=== PATIENT | female | born 1950 | race Caucasian/White ===

== ENCOUNTER 2017-04-27 21:50 | Emergency (ER) | payer OTHER ==
[~2017-04-27 21:50] MED LIST: ASCO500T PO; B12-1CHW CHEW; CALC-187 PO; FURO40TA PO; GLUCCAP5 PO; LECI1200; LEVO50TA4 PO; MELA1TAB3 PO; META28.34 PO; MILK175C6 PO; MULT1TAB84 PO; OMEG100037 PO; POTA99TA PO; PROBCAP3 PO; SELE50TA PO; SPIR50TA PO; [UNRECOGNIZED DRUG - CODE]
[2017-04-27 21:53] VITALS: BP 126/73; PULSE 81; RESP 16; TEMP 98; O2SAT 97
--- NOTE | 2017-04-27 22:56 | PD ---
HPI Chief Complaint: Injury Time Seen by Provider: 22:44 Travel History International Travel<30 days: No Contact w/Intl Traveler<30days: No Traveled to known affect area: No History of Present Illness HPI 66-year-old female here for evaluation of nose pain, head pain, neck pain, and left lateral thoracic pain after mechanical trip and fall. The patient was at a class for work at [employer] when she states she tripped on a speed bump. She states that she fell forward landing directly onto her nose. She denies LOC. She is not on any antiplatelets or anticoagulants. She did have a moderate amount of bleeding from her nose. She is having some pain in her lower neck that radiates to her bilateral shoulders and upper back with movements. She was able to ambulate after the fall and drove herself to the emergency department. She denies nausea or vomiting. No visual disturbances. No paresthesias or motor deficits. Pain is moderate. PFSH Past Medical History Cancer: No Cardiovascular Problems: Yes (MITRAL VALVE PROLAPSE) Diabetes: No Diminished Hearing: No Endocrine: Yes Gastrointestinal Disorders: Yes (GI VARICES, CIRRHOSIS) Genitourinary: No Hepatitis: Yes (HEP C3 - 2001) Hiatal Hernia: No Immune Disorder: No Medical other: Yes (HX ESOPHAGEAL & ABDOMINAL VARICES ) Musculoskeletal: No Neurologic: No Psychiatric: No Respiratory: No Thyroid Disease: Yes ("UNDERACTIVE") Tetanus Vaccination: Unknown Past Surgical History Abdominal Surgery: No AICD: No Body Medical Devices: NONE Cardiac Surgery: No Endocrine Surgery: No Eye Surgery: No Genitourinary Surgery: No Gynecologic Surgery: No Joint Replacement: No Oral Surgery: Yes (TONSILLECTOMY ) Pacemaker: No Thoracic Surgery: Yes (BREAST BIOPSY - BENIGN (? WHICH BREAST) BLOCKED MILK DUCT) Other Surgery: Yes (PROCEDURE TO REPAIR ESOPHAGEAL & ABDOMINAL VARICES ) Social History Alcohol Use: No Tobacco Use: Yes (PT 'VAPES') Substance Use: No Allergies-Medications (Allergen,Severity, Reaction): Coded Allergies: No Known Allergies (Unverified , 04/27/17) Reported Meds & Prescriptions Reported Meds & Active Scripts Active Levothyroxine (Levothyroxine Sodium) 50 Mcg Tab 50 Mcg PO DAILY Spironolactone 50 Mg Tab 50 Mg PO BIDPC Furosemide 40 Mg Tab 80 Mg PO BID Reported Selenium 50 Mcg Tab 50 Mg PO DAILY Probiotic & Acidophilus F (Probiotic Product) 1 Cap Cap 1 Cap PO DAILY Potassium 99 Mg Tab 99 Mg PO TID Multivitamin Adults (Multiple Vitamins W/ Minerals) 1 Tab 1 Tab PO DAILY Milk Thistle 175 Mg Cap 175 Mg PO TID [id number] (Methylcobalamin) 1 Mg Chew 1 Mg CHEW BID Metamucil Smooth Texture (Psyllium Hydrophilic Mucilloid) 28.3 % Pow 1 Scoop PO HS PRN 1 rounded TEASPOON in 8 oz of liquid at the first sign of irregularity. Melatonin-Pyridoxine 1-10 Mg Tab 1 Tab PO HS Lecithin 1,200 Mg Cap Glucosamine-Chondroitin (Misc Natural Products) 1 Cap 1 Cap PO TID Odor Free Garlic (Garlic) 100 Mg Tab Fish Oil 1000 mg ([place]-3 Fatty Acids) 1 Cap Cap 1 Cap PO BID Calcium 500/Vitamin D3 (Calcium Carbonate-Cholecalciferol) 500-400 Mg-Unit Tab 1 Tab PO BID Ascorbic Acid 500 Mg Tab 500 Mg PO TID Review of Systems Except as stated in HPI: all other systems reviewed are Neg Physical Exam Narrative GENERAL: Well-developed, well-nourished, awake, alert, GCS 15, no acute distress. SKIN: Focused skin assessment warm/dry. Mild ecchymosis to bridge of nose. No lacerations or abrasions. HEAD: Normocephalic. Mild edema to bridge of nose with overlying ecchymosis and diffuse tenderness. No craniofacial step-offs. EYES: Pupils equal, round, 3 mm, reactive to light. EOMI. No scleral icterus. No injection or drainage. ENT: Dry blood in right anterior naris. Mucous membranes pink and moist. NECK: Trachea midline. No JVD. There is midline cervical spine tenderness over C5 and C6 without step-off. CARDIOVASCULAR: Regular rate and rhythm. RESPIRATORY: No accessory muscle use. Clear to auscultation. Breath sounds equal bilaterally. GASTROINTESTINAL: Abdomen soft, non-tender, nondistended. MUSCULOSKELETAL: No obvious deformities. No clubbing. No cyanosis. No edema. Left lateral chest wall tenderness without crepitus, without step-off, without paradoxical chest wall movement. Mild midline upper thoracic spine tenderness without step-off. The rest of the patient's T-spine and L-spine spine are without step-off or tenderness. All joints and extremities are without deformity, without tenderness, with normal ROM. NEUROLOGICAL: Awake and alert. No obvious cranial nerve deficits. Motor grossly within normal limits. Normal speech. PSYCHIATRIC: Appropriate mood and affect; insight and judgment normal. Data Data Last Documented VS Vital Signs Date Time Temp Pulse Resp B/P Pulse Ox O2 Delivery O2 Flow Rate FiO2 04/27/17 22:38 18 04/27/17 21:53 98.0 81 126/[address] Brain W/O Iv Contrast(Rout) (04/27/17 ) Ct Cerv Spine W/O Contrast (04/27/17 ) Ct Facial Bones W/O Iv Cont (04/27/17 ) Chest, Single Ap (04/27/17 ) Spine, Thoracic-Ap/Lat/Sw(3vw) (04/27/17 ) Ibuprofen (Motrin) (04/27/17 23:00) ^ [place] Collar (04/27/17 22:56) Collar [place] (04/27/17 ) MDM Medical Decision Making Medical Screen Exam Complete: Yes Emergency Medical Condition: Yes Differential Diagnosis Facial bone fracture, intracranial trauma, cervical spine injury, thoracic spine injury Narrative Course Initial vital signs show heart rate 81, blood pressure 126/73, pulse ox 97% on room air, oral temp of 98F. Chest x-ray: Left basilar subsegmental atelectasis. X-ray thoracic spine: Slight dextrocurvature otherwise unremarkable thoracic spine. CT brain: No acute intracranial disease. CT facial bones: CONCLUSION: Right nasal fracture. CT C spine: CONCLUSION: 1. No fracture. 2. Degenerative changes from C4-C6. The patient was made aware of all findings. She is resting comfortably. No respiratory distress. She does have some left lateral chest wall tenderness without crepitus, without step-off, without paradoxical chest wall movements. She refused any pain medication here in the emergency department. She is stable for discharge home with outpatient follow-up with her primary care physician as well as maxillofacial surgeon this week. She was informed on when to return to the emergency department. She verbalizes understanding and agreement with plan. Diagnosis Primary Impression: Fall Qualified Code: W19.XXXA - Fall, initial encounter Additional Impressions: Nasal bone fracture Qualified Code: S02.2XXA - Closed fracture of nasal bone, initial encounter Chest wall contusion Qualified Code: S20.212A - Chest wall contusion, left, initial encounter Referrals: Denton Freire MD 1 week ENT Romie Alvarenga DMD 3 days Craniofacial surgeon Primary Care Physician 3 days Additional Instructions: Follow-up with your primary care physician this week. Follow-up with craniofacial surgeon Dr. Alvarenga or a craniofacial surgeon of your choice this week. Follow-up with ENT Dr. Freire or an ENT of your choice this week. Return to the emergency department for worsening symptoms or any other concerns as discussed. Scripts Tizanidine 4 Mg Tab4 Mg PO TID #20 TAB Ref 0 Prov:Derek Soni MD 04/28/17 Tramadol 50 Mg Tab50 Mg PO Q6H PRN (PAIN) #20 TAB Ref 0 Prov:Derek Soni MD 04/28/17 Disposition: 01 DISCHARGE HOME Condition: Stable Derek Soni MD Apr 27, 2017 22:56
[2017-04-27] MEDS ORDERED: IBUPROFEN 600 MG TAB PO ONE (23:00)
--- NOTE | 2017-04-27 23:36 | RADRPT ---
EXAM DATE/TIME: 04/27/2017 23:14 [facility] COMPARISON: No previous studies available for comparison. INDICATIONS : Patient fell tonight landing on upper back area. No chest complaints. MEDICAL HISTORY : None. SURGICAL HISTORY : None. ENCOUNTER: Initial ACUITY: 1 day PAIN SCORE: 0/10 LOCATION: chest FINDINGS: A single view of the chest demonstrates the lungs to be symmetrically aerated without evidence of mas s, infiltrate or effusion. Minimal linear density left lung base. The cardiomediastinal contours are unremarkable. Osseous structures are intact. CONCLUSION: 1. Left basilar subsegmental atelectasis. Papi Quezada MD on April 27, 2017 at 23:34 Board Certified Radiologist. This report was verified electronically.
--- NOTE | 2017-04-27 23:37 | RADRPT ---
EXAM DATE/TIME: 04/27/2017 23:15 [facility] COMPARISON: No previous studies available for comparison. INDICATIONS : Patient fell tonight landing on upper back. Complains of thoracic pain. MEDICAL HISTORY : None. SURGICAL HISTORY : None. ENCOUNTER: Initial ACUITY: 1 day PAIN SCORE: 7/10 LOCATION: T-Spine FINDINGS: There is normal alignment of the thoracic vertebral bodies. Vertebral body height is maintained. No evidence of fracture or subluxation. Slight dextrocurvature. Pedicles are intact at all levels. The paravertebral reflections are not thickened. CONCLUSION: Slight dextrocurvature otherwise unremarkable thoracic spine. Papi Quezada MD on April 27, 2017 at 23:35 Board Certified Radiologist. This report was verified electronically.
--- NOTE | 2017-04-28 00:08 | RADRPT ---
EXAM DATE/TIME: 04/27/2017 23:21 [facility] COMPARISON: No previous studies available for comparison. INDICATIONS : Trauma, fall. RADIATION DOSE: 26.22 CTDIvol (mGy) MEDICAL HISTORY : Cardiovascular disease. SURGICAL HISTORY : None. ENCOUNTER: Initial ACUITY: 1 day PAIN SCALE: 3/10 LOCATION: cranial TECHNIQUE: Multiple contiguous axial images were obtained of the head. Using automated exposure control and adj ustment of the mA and/or kV according to patient size, radiation dose was kept as low as reasonably a chievable to obtain optimal diagnostic quality images. DICOM format image data is available electro nically for review and comparison. FINDINGS: CEREBRUM: The ventricles are normal for age. No evidence of midline shift, mass lesion, hemorrhage or acute in farction. No extra-axial fluid collections are seen. POSTERIOR FOSSA: The cerebellum and brainstem are intact. The 4th ventricle is midline. The cerebellopontine angle i s unremarkable. EXTRACRANIAL: The visualized portion of the orbits is intact. SKULL: The calvaria is intact. No evidence of skull fracture. CONCLUSION: No acute intracranial disease. Papi Quezada MD on April 28, 2017 at 0:05 Board Certified Radiologist. This report was verified electronically.
--- NOTE | 2017-04-28 00:11 | RADRPT ---
EXAM DATE/TIME: 04/27/2017 23:21 [facility] COMPARISON: No previous studies available for comparison. INDICATIONS : Trauma, fall. RADIATION DOSE: 10.66 CTDIvol (mGy) MEDICAL HISTORY : None SURGICAL HISTORY : None. ENCOUNTER: Initial ACUITY: 1 day PAIN SCALE: 3/10 LOCATION: neck TECHNIQUE: Volumetric scanning of the cervical spine was performed. Multiplanar reconstructions in the sagittal, coronal and oblique axial planes were performed. Using automated exposure control and adjustment o f the mA and/or kV according to patient size, radiation dose was kept as low as reasonably achievable to obtain optimal diagnostic quality images. DICOM format image data is available electronically f or review and comparison. FINDINGS: VERTEBRAE: Normal vertebral body height. ALIGNMENT: Minimal retrolisthesis C4 on C5 and C5 at C6. C2-C3: The bony spinal canal is normal in size. No evidence of disc bulge or herniation. The neural forami na are bilaterally patent. C3-C4: The bony spinal canal is normal in size. No evidence of disc bulge or herniation. The neural forami na are bilaterally patent. C4-C5: Posterior disc osteophyte complex abuts the ventral thecal sac without canal stenosis. Mild neural fo raminal narrowing bilaterally. C5-C6: Posterior disc osteophyte complex abuts the ventral thecal sac without canal stenosis. Mild neural fo raminal narrowing bilaterally. C6-C7: The bony spinal canal is normal in size. No evidence of disc bulge or herniation. The neural forami na are bilaterally patent. C7-T1: The bony spinal canal is normal in size. No evidence of disc bulge or herniation. The neural forami na are bilaterally patent. CONCLUSION: 1. No fracture. 2. Degenerative changes from C4-C6. Papi Quezada MD on April 28, 2017 at 0:08 Board Certified Radiologist. This report was verified electronically.
--- NOTE | 2017-04-28 00:14 | RADRPT ---
EXAM DATE/TIME: 04/27/2017 23:21 [facility] COMPARISON: No previous studies available for comparison. INDICATIONS : Trauma, fall. RADIATION DOSE: 45.71 CTDIvol (mGy) MEDICAL HISTORY : None SURGICAL HISTORY : None. ENCOUNTER: Initial ACUITY: 1 day PAIN SCORE: 6/10 LOCATION: facial TECHNIQUE: Volumetric scanning of the facial bones was performed. Using automated exposure control and adjustme nt of the mA and/or kV according to patient size, radiation dose was kept as low as reasonably achiev able to obtain optimal diagnostic quality images. DICOM format image data is available electronicall y for review and comparison. FINDINGS: ORBITS: The orbital and infraorbital osseous structures are intact. The retroconal structures have a normal configuration. No radiopaque foreign bodies are seen. NASAL BONE: Displaced and slightly depressed right nasal fracture. ZYGOMATIC ARCHES: Symmetric without evidence of fracture. SINUSES: The maxillary, ethmoid and frontal sinuses are intact. No air-fluid levels seen. NASAL CAVITY: The nasal septum is intact and midline. The lacrimal ducts are intact. SOFT TISSUES: No radiopaque foreign bodies seen. No soft-tissue swelling is seen. INTRACRANIAL: No intracranial air seen. CRIBIFORM PLATE: Grossly intact. CONCLUSION: Right nasal fracture. Papi Quezada MD on April 28, 2017 at 0:10 Board Certified Radiologist. This report was verified electronically.
[2017-04-28] MEDS ORDERED: TRAM50TA PO (00:34)
[2017-04-28] MEDS ORDERED: TIZA4TAB PO (00:34)
== END 2017-04-28 00:48 | disposition home or self-care (01) ==
LOC: NEPD 21:50
DX: S02.2XXA Fracture of nasal bones, initial encounter for closed fracture (principal); S20.212A Contusion of left front wall of thorax, initial encounter; W18.09XA Striking against other object with subsequent fall, initial encounter; Y92.481 Parking lot as the place of occurrence of the external cause; Y99.0 Civilian activity done for income or pay
CPT/HCPCS: 70450; 70486; 71010; 72072; 72125; 99284; L0150

== ENCOUNTER 2018-04-07 15:54 | Observation (INO) | payer OTHER ==
[~2018-04-07 15:54] MED LIST changes: +TIZA4TAB PO; +TRAM50TA PO
[2018-04-07 16:01] VITALS: BP 118/68; PULSE 70; RESP 18; TEMP 97.9; O2SAT 69; O2SAT 96
[2018-04-07] MEDS ORDERED: TETANUS/DIPHTHERIA TOXOID ADULT 0.5 ML VIAL IM ONE (16:15)
[2018-04-07] MEDS ORDERED: SODIUM CHLOR 0.9% 1000 ML INJ 1,000 ML IV ONE ×2 (16:15→19:15)
[2018-04-07] MEDS ORDERED: METOCLOPRAMIDE HCL 10 MG/2 ML VIAL IV PUSH ONE (16:15)
[2018-04-07 16:59] LABS: AUTOMATED NEUTROPHIL # 2.9 TH/MM3 (1.8-7.7); BASOPHIL % 0.8 % (0.0-2.0); EOSINOPHIL # 0.1 TH/MM3 (0-0.4); EOSINOPHIL % 3.2 % (0.0-4.0); HEMATOCRIT 47.1 % (35.0-46.0); HEMOGLOBIN 16.4 GM/DL (11.6-15.3); LYMPH % 14.3 % (9.0-44.0); LYMPHOCYTE # 0.6 TH/MM3 (1.0-4.8); MEAN CELL VOLUME 100.5 FL (80.0-100.0); MEAN CORPUSCULAR HEMOGLOBIN 35.1 PG (27.0-34.0); MEAN CORPUSCULAR HGB CONC 34.9 % (32.0-36.0); MEAN PLATELET VOLUME 10.4 FL (7.0-11.0); MONO % 9.4 % (0.0-8.0); MONOCYTE # 0.4 TH/MM3 (0-0.9); NEUT % 72.3 % (16.0-70.0); PLATELET COUNT 133 TH/MM3 (150-450); RED BLOOD COUNT 4.68 MIL/MM3 (4.00-5.30); RED CELL DISTRIBUTION WIDTH 14.3 % (11.6-17.2)
--- NOTE | 2018-04-07 17:04 | RADRPT ---
EXAM DATE: 04/07/2018 4:44 PM EDT AGE/SEX: 67 years / Female INDICATIONS: Syncopal episode and shortness of breath. CLINICAL DATA: This is the patient's initial encounter. Patient reports that signs and symptoms have been present for 1 day and indicates a pain score of 0/10. MEDICAL/SURGICAL HISTORY: None. None. COMPARISON: Previous chest x-ray dated 04/27/2017 is used for comparison.. FINDINGS: Minimal bibasilar atelectasis and/or scarring is noted. No focal alveolar consolidation is noted. No pulmonary edema is noted. The heart is stable. Mild degenerative changes and scoliosis of the thoraci c spine are noted. CONCLUSION: 1. Minimal bibasilar atelectasis and/or scarring. 2. No acute focal infiltrate or pulmonary vascular congestion. 3. Mild degenerative changes and scoliosis of the thoracic spine. Electronically signed by: Bowen Rubi MD 04/07/2018 5:03 PM EDT
[2018-04-07 17:12] LABS: INTERNATIONAL NORMALIZED RATIO 1.3 RATIO
[2018-04-07 17:51] LABS: ALBUMIN 3.6 GM/DL (3.4-5.0); AST (GOT) 45 U/L (15-37); BICARBONATE 27.2 MEQ/L (21.0-32.0); BLOOD UREA NITROGEN 14 MG/DL (7-18); CHLORIDE 98 MEQ/L (98-107); CREATININE 0.94 MG/DL (0.50-1.00); GLOMERULAR FILTRATION RATE 60 ML/MIN (>89); GLUCOSE,RANDOM 110 MG/DL (74-106); SODIUM (NA) 137 MEQ/L (136-145)
[2018-04-07 17:52] LABS: ALT (GPT) 32 U/L (10-53)
[2018-04-07 18:00] VITALS: BP 114/72; PULSE 67; RESP 16; O2SAT 96
[2018-04-07] MEDS ORDERED: LIDOCAINE HCL 1% PF 30 ML VIAL INFIL ONE (18:00)
[2018-04-07 18:02] LABS: ALKALINE PHOSPHATASE 167 U/L (45-117); TOTAL BILIRUBIN ADULT 1.4 MG/DL (0.2-1.0); TOTAL PROTEIN 7.8 GM/DL (6.4-8.2); TROPONIN I 0.02 NG/ML (0.02-0.05)
--- NOTE | 2018-04-07 18:06 | RADRPT ---
EXAM DATE: 04/07/2018 6:02 PM EDT AGE/SEX: 67 years / Female INDICATIONS: Syncopal episode, fell and hit head, nausea, and vomiting. CLINICAL DATA: This is the patient's initial encounter. Patient reports that signs and symptoms have been present for 1 day and indicates a pain score of 6/10. MEDICAL/SURGICAL HISTORY: Cardiovascular disease. Hepatitis C. Cirrhosis. Mitral valve prolapse. Hypothyroidism. None. RADIATION DOSE: 56.35 CTDI (mGy) COMPARISON: [facility] [place], [place] BRAIN W/O CONTRAST, 04/27/2017. . TECHNIQUE: CT of the head without contrast. Using automated exposure control and adjustment of the mA and/or kV according to patient size, radiation dose was kept as low as reasonably achievable to ob tain optimal diagnostic quality images. FINDINGS: Cerebrum: The ventricles are normal for age. No evidence of midline shift, mass lesion, hemorrhage or acute infarction. No extraaxial fluid collections are seen. Posterior Fossa: The cerebellum and brainstem are intact. The 4th ventricle is midline. The cerebe llopontine angle is unremarkable. Extracranial: There is a large left parietal scalp hematoma. Skull: The calvaria is intact. No evidence of skull fracture. CONCLUSION: 1. No acute intracranial abnormality. 2. Left parietal scalp hematoma. Electronically signed by: Jose Clemons MD 04/07/2018 6:05 PM EDT
--- NOTE | 2018-04-07 18:18 | RADRPT ---
EXAM DATE: 04/07/2018 6:03 PM EDT AGE/SEX: 67 years / Female INDICATIONS: Syncopal episode, fell and hit head. CLINICAL DATA: This is the patient's initial encounter. Patient reports that signs and symptoms have been present for 1 day and indicates a pain score of 6/10. MEDICAL/SURGICAL HISTORY: Cardiovascular disease. Hepatitis C. Cirrhosis. Mitral valve prola pse. None. RADIATION DOSE: 13.72 CTDI (mGy) COMPARISON: [facility] – [place], CT CERVICAL SPINE W/O CONTRAST, 04/27/2017. . TECHNIQUE: Contiguous axial images were obtained using helical multirow detector technique. The vol umetric data was post-processed with multiplanar reconstruction in oblique axial, sagittal, and coron al planes. Using automated exposure control and adjustment of the mA and/or kV according to patient s ize, radiation dose was kept as low as reasonably achievable to obtain optimal diagnostic quality kel ges. FINDINGS: No acute fracture or prevertebral soft tissue swelling is noted. There is straightening of the normal cervical lordosis. Cervical spondylosis is noted at C4-5, C5-6 and C6-7. Moderate bilateral foramina l narrowing is noted at C4-5, C5-6 and C6-7. Mild spinal stenosis is noted at C5-6. Scoliosis is note d throughout the cervical spine. C2-3: The bony spinal canal is normal in size. No evidence of disc bulge or herniation. The neural foramina are bilaterally patent. C3-4: The bony spinal canal is normal in size. No evidence of disc bulge or herniation. The neural foramina are bilaterally patent. C4-5: Moderate bilateral foraminal narrowing is noted. No spinal stenosis or focal disc herniation i s noted. C5-6: Mild spinal stenosis and moderate bilateral foraminal narrowing is noted. No focal disc hernia tion is noted. C6-7: Moderate bilateral foraminal narrowing is noted. No spinal stenosis or focal disc herniation i s noted. C7-T1: The bony spinal canal is normal in size. No evidence of disc bulge or herniation. The neura l foramina are bilaterally patent. CONCLUSION: 1. No acute fracture or prevertebral soft tissue swelling. 2. Mild spinal stenosis and moderate bilateral foraminal narrowing at C5-6. 3. Moderate bilateral foraminal narrowing at C4-5 and C6-7 without spinal stenosis. 4. Straightening of normal cervical lordosis. 5. Scoliosis of the cervical spine. 6. Cervical spondylosis at C4-5, C5-6 and C6-7. Electronically signed by: Bowen Rubi MD 04/07/2018 6:16 PM EDT
[2018-04-07] MEDS ORDERED: SODIUM CHLORIDE 0.9% FLUSH 10 ML FLUSH IV FLUSH PRN ×2 (18:45→19:15)
[2018-04-07] MEDS ORDERED: NALOXONE HCL 0.4 MG/ML AMP IV PUSH PRN (18:45)
--- NOTE | 2018-04-07 19:04 | HHI.HP ---
[facility] No Primary Care Physician Admission Diagnosis Diagnoses: (1) Syncope Diagnosis: Principal (2) Head injury, acute Diagnosis: Principal (3) Coagulopathy Diagnosis: Principal (4) Hepatitis C Diagnosis: Principal (5) Hypothyroidism Diagnosis: Principal Travel History International Travel<30 Days: No Contact w/Intl Traveler <30 Da: No Traveled to Known Affected Are: No History of Present Illness This is a 67-year-old female with a PMH of Hepatitis C, Cirrhosis, Varices, MVP and Hypothyroidism who was brought to the ER by EMS secondary to syncopal episode. Patient states she works at [employer], was at work earlier today and had acute onset of dizziness, states she finished up her shift and while in the break room had another episode of dizziness followed by acute syncopal event. No seizure activity reported. Denies c/o chest pain, SOB , fever, chills, nausea, vomiting or diarrhea. Does note h/o Hepatitis C, successfully treated w/ Interferon "decades ago", on Lasix 80mg bid and Aldactone 50mg bid. Also notes she was previously on Synthroid 75mcg qd but had dosage decreased to 50mcg, currently no PCP to follow up with. On arrival, BP 118/68, HR 70, O2 sat 96% on RA, Afebrile. Hemoglobin 16.4, no previous labs for comparison. Platelets 133. Chemistry at baseline. TSH [address] Head with no acute findings, left parietal scalp hematoma. CT C-spine no acute fracture or soft tissue swelling CXR minimal bibasilar atelectasis, no focal infiltrate or pulmonary vascular congestion. +Head laceration, s/p suture repair in ER. Review of Systems Except as stated in HPI: all other systems reviewed are Neg ROS: 14 point review of systems otherwise negative. Past Family Social History Past Medical History PMH: Hepatitis C, Cirrhosis, Varices, MVP and Hypothyroidism Past Surgical History PAST SURGICAL HISTORY: Tonsillectomy, Breast Biopsy Allergies: Coded Allergies: No Known Allergies (Unverified Allergy, Unknown, 04/07/18) Family History PAST FAMILY HISTORY: Reviewed. No h/o DM or CAD Social History PAST SOCIAL HISTORY: Occasional alcohol. Positive for tobacco. Negative for drugs per Physical Exam Vital Signs Vital Signs Date Time Temp Pulse Resp B/P (MAP) Pulse Ox O2 Delivery O2 Flow Rate FiO2 04/07/18 18:00 67 16 114/72 (86) 96 Room Air 04/07/18 16:01 97.9 70 18 118/68 (85) 96 Physical Exam PE: GENERAL: Very pleasant middle-aged white female in no acute distress. HEENT: PERRLA, EOMI. No scleral icterus or conjunctival pallor. No lid lag or facial droop. Posterior scalp hematoma, s/p suture repair, bandage in place. CARDIOVASCULAR: Regular rate and rhythm. No obvious murmurs to auscultation. No chest tenderness to palpation. RESPIRATORY: No obvious rhonchi or wheezing. Clear to auscultation. Breath sounds equal bilaterally. GASTROINTESTINAL: Abdomen soft, non-tender, nondistended. BS normal. MUSCULOSKELETAL: Extremities without clubbing, cyanosis, or edema. No obvious deformities. NEUROLOGICAL: Awake, alert and oriented x4. No focal neurologic deficits. Moving both upper and lower extremities spontaneously. Laboratory Laboratory Tests Test 04/07/18 16:15 04/07/18 17:05 White Blood Count 4.0 Red Blood Count 4.68 Hemoglobin 16.4 Hematocrit 47.1 Mean Corpuscular Volume 100.5 Mean Corpuscular Hemoglobin 35.1 Mean Corpuscular Hemoglobin Concent 34.9 Red Cell Distribution Width 14.3 Platelet Count 133 Mean Platelet Volume 10.4 Neutrophils (%) (Auto) 72.3 Lymphocytes (%) (Auto) 14.3 Monocytes (%) (Auto) 9.4 Eosinophils (%) (Auto) 3.2 Basophils (%) (Auto) 0.8 Neutrophils # (Auto) 2.9 Lymphocytes # (Auto) 0.6 Monocytes # (Auto) 0.4 Eosinophils # (Auto) 0.1 Basophils # (Auto) 0.0 CBC Comment DIFF FINAL Differential Comment Prothrombin Time 13.0 Prothromb Time International Ratio 1.3 Activated Partial Thromboplast Time 27.6 Blood Urea Nitrogen 14 Creatinine 0.94 Random Glucose 110 Total Protein 7.8 Albumin 3.6 Calcium Level 9.0 Magnesium Level 2.0 Alkaline Phosphatase 167 Aspartate Amino Transf (AST/SGOT) 45 Alanine Aminotransferase (ALT/SGPT) 32 Total Bilirubin 1.4 Sodium Level 137 Potassium Level 3.7 Chloride Level 98 Carbon Dioxide Level 27.2 Anion Gap 12 Estimat Glomerular Filtration Rate 60 Total Creatine Kinase 95 Troponin I 0.02 Thyroid Stimulating Hormone 3rd Gen 83.800 Result Diagram: 04/07/18 1615 04/07/18 1705 Caprini VTE Risk Assessment Caprini VTE Risk Assessment: No/Low Risk (score <= 1) VTE Pharm Contraindication: High risk for bleeding Caprini Risk Assessment Model Point Value = 1 Point Value = 2 Point Value = 3 Point Value = 5 Age 41-60 Minor surgery BMI > 25 kg/m2 Swollen legs Varicose veins or History of unexplained or recurrent spontaneous Oral contraceptives or hormone replacement Sepsis (< 1 month) Serious lung disease, including pneumonia (< 1 month) Abnormal pulmonary function Acute myocardial infarction Congestive heart failure (< 1 month) History of inflammatory bowel disease Medical patient at bed rest Age 61-74 Arthroscopic surgery Major open surgery (> 45 min) Laparoscopic surgery (> 45 min) Malignancy Confined to bed (> 72 hours) Immobilizing plaster cast Central venous access Age >= 75 History of VTE Family history of VTE Factor V Leiden Prothrombin [id number] Lupus anticoagulant Anticardiolipin antibodies Elevated serum homocysteine Heparin-induced thrombocytopenia Other congenital or acquired thrombophilia Stroke (< 1 month) Elective arthroplasty Hip, pelvis, or leg fracture Acute spinal cord injury (< 1 month) Prophylaxis Regimen Total Risk Factor Score Risk Level Prophylaxis Regimen 0-1 Low Early ambulation 2 Moderate Order ONE of the following: *Sequential Compression Device (SCD) *Heparin 5000 units SQ BID 3-4 Higher Order ONE of the following medications: *Heparin 5000 units SQ TID *Enoxaparin/Lovenox 40 mg SQ daily (WT < 150 kg, CrCl > 30 mL/min) *Enoxaparin/Lovenox 30 mg SQ daily (WT < 150 kg, CrCl > 10-29 mL/min) *Enoxaparin/Lovenox 30 mg SQ BID (WT < 150 kg, CrCl > 30 mL/min) AND/OR *Sequential Compression Device (SCD) 5 or more Highest Order ONE of the following medications: *Heparin 5000 units SQ TID (Preferred with Epidurals) *Enoxaparin/Lovenox 40 mg SQ daily (WT < 150 kg, CrCl > 30 mL/min) *Enoxaparin/Lovenox 30 mg SQ daily (WT < 150 kg, CrCl > 10-29 mL/min) *Enoxaparin/Lovenox 30 mg SQ BID (WT < 150 kg, CrCl > 30 mL/min) AND *Sequential Compression Device (SCD) Assessment and Plan Problem List: (1) Syncope ICD Code: R55 - Syncope and collapse Status: Acute (2) Head injury, acute ICD Code: S09.90XA - Unspecified injury of head, initial encounter Status: Acute (3) Coagulopathy ICD Code: D68.9 - Coagulation defect, unspecified (4) Hepatitis C ICD Code: B19.20 - Unspecified viral hepatitis C without hepatic coma (5) Hypothyroidism ICD Code: E03.9 - Hypothyroidism, unspecified Assessment and Plan A/P: 1. Syncope: acute dizziness followed by syncopal event, possibly due to dehydration from high dose diuretic therapy, monitor I/O, admit for Observation , Telemetry, initial trop negative, will check serial cardiac enzymes to eval for possible ischemia. Check Echo to eval for valvular abnormality/outlet obstruction. IVF for hydration. Meclizine prn for dizziness, PT for eval/tx. 2. Head Injury: secondary to syncope/fall. CT Head w/ no acute findings, CT C -Spine w/ no acute fracture, images reviewed by me. S/p suture repair in ER. Hold any ASA/Anticoagulation. 3. Coagulopathy: INR 1.3, h/o Hepatitis C, successfully treated per patient, recheck INR in am in light of recent injury. 4. Hepatitis C: s/p Interferon treatment, currently on Lasix/Aldactone, will hold for now in light of syncope/dehydration, monitor I/O, consider lowering Lasix 80mg bid 5. Hypothyroidism: TSH elevated, previously on Synthroid 75mcg, lowered to 50mcg however pending new PCP follow up. Will check T3/T4, increase Synthroid to 75mcg, outpatient follow up w/ PCP for lab recheck. 6. DVT Prophylaxis: Pharmacologic contraindication due to coagulopathy 7. Social work for d/c planning as needed. 8. Case discussed w/ ER physician at length, labs/records/imaging reviewed by me. Problem Qualifiers (1) Syncope: Qualified Codes: R55 - Syncope and collapse (2) Head injury, acute: Qualified Codes: S09.90XA - Unspecified injury of head, initial encounter Lyndsey Rivrea MD Apr 07, 2018 19:04
[2018-04-07] MEDS ORDERED: LACTULOSE SYRUP 20 GM/30 ML CUP PO PRN (19:15)
[2018-04-07] MEDS ORDERED: MAGNESIUM HYDROXIDE SUSP 30 ML CUP PO PRN (19:15)
[2018-04-07] MEDS ORDERED: SENNOSIDES 8.6 MG TAB PO PRN (19:15)
[2018-04-07] MEDS ORDERED: BISACODYL 10 MG SUPP RECTAL PRN (19:15)
--- NOTE | 2018-04-07 19:30 | PD ---
HPI Chief Complaint: Syncope/Near-Syncope Time Seen by Provider: 16:06 Travel History International Travel<30 days: No Contact w/Intl Traveler<30days: No Traveled to known affect area: No History of Present Illness HPI 67-year-old female that presents to the ED for evaluation of syncope. Patient had a syncopal episode today while at work. Per patient she does not remember what happened. She does not know what happened before this. She woke up on the floor and apparently had a significant head injury. Patient was put on cervical collar by EVAC. She was brought here for evaluation. She states that she has had 2 syncopal episode the past and she was told that she had the hydration. She relates that is the same. She does have a history of thyroid disease. She states having a headache and some neck pain. Per patient the headache is 7 out of 10. Denies take any blood thinners. Has not seen anybody for this. No chest pain or shortness of breath. No urinary or bowel movement issues. No abdominal pain. No symptoms preloading to the event. She does not know how long she was down. No fevers chills or sweats. No other medical issues at this time. She does appear to be bleeding from a injury to the back of the head. Heart disease secondary to significant blood clotting in the area. PFSH Past Medical History Cancer: No Cardiovascular Problems: Yes (MITRAL VALVE PROLAPSE) Diabetes: No Diminished Hearing: No Endocrine: Yes Gastrointestinal Disorders: Yes (GI VARICES, CIRRHOSIS) Hepatitis: Yes (HEP C3 - 2001) Hiatal Hernia: No Immune Disorder: No Medical other: Yes (HX ESOPHAGEAL & ABDOMINAL VARICES ) Thyroid Disease: Yes (hypo) Tetanus Vaccination: Unknown Influenza Vaccination: Yes Past Surgical History Abdominal Surgery: No AICD: No Cardiac Surgery: No Endocrine Surgery: No Eye Surgery: No Genitourinary Surgery: No Gynecologic Surgery: No Joint Replacement: No Oral Surgery: Yes (TONSILLECTOMY ) Pacemaker: No Thoracic Surgery: Yes (BREAST BIOPSY - BENIGN (? WHICH BREAST) BLOCKED MILK DUCT) Tonsillectomy: Yes Other Surgery: Yes (BREAST BIOPSY, REPAIR ESOPHAGEAL & ABDOMINAL VARICES ) Social History Alcohol Use: Yes (Wine after work) Tobacco Use: Yes ("A couple cigarettes a day") Substance Use: No Allergies-Medications (Allergen,Severity, Reaction): Coded Allergies: No Known Allergies (Unverified Allergy, Unknown, 04/07/18) Reported Meds & Prescriptions Reported Meds & Active Scripts Active Furosemide 40 Mg Tab 80 Mg PO BID Tizanidine (Tizanidine HCl) 4 Mg Tab 4 Mg PO TID Tramadol (Tramadol HCl) 50 Mg Tab 50 Mg PO Q6H PRN Levothyroxine (Levothyroxine Sodium) 50 Mcg Tab 50 Mcg PO DAILY Spironolactone 50 Mg Tab 50 Mg PO BIDPC Reported Probiotic & Acidophilus F (Probiotic Product) 1 Cap Cap 1 Cap PO DAILY Metamucil Smooth Texture (Psyllium Hydrophilic Mucilloid) 28.3 % Pow 1 Scoop PO HS PRN 1 rounded TEASPOON in 8 oz of liquid at the first sign of irregularity. Melatonin-Pyridoxine 1-10 Mg Tab 1 Tab PO HS Glucosamine-Chondroitin (Misc Natural Products) 1 Cap 1 Cap PO TID Calcium 500/Vitamin D3 (Calcium Carbonate-Cholecalciferol) 500-400 Mg-Unit Tab 1 Tab PO BID Ascorbic Acid 500 Mg Tab 500 Mg PO TID Review of Systems Except as stated in HPI: all other systems reviewed are Neg Physical Exam Narrative GENERAL: SKIN: Warm and dry. HEAD: Atraumatic. Normocephalic. Patient has a significant hematoma to the left occipital head. Tender to touch. Some bleeding noted. About a 4 cm laceration to the back of the head with some clotting. EYES: Pupils equal and round. No scleral icterus. No injection or drainage. ENT: No nasal bleeding or discharge. Mucous membranes pink and moist. Tongue is midline. No uvula deviation. NECK: Trachea midline. No JVD. CARDIOVASCULAR: Regular rate and rhythm. No murmurs, S3, S4. RESPIRATORY: No accessory muscle use. Clear to auscultation. Breath sounds equal bilaterally. GASTROINTESTINAL: Abdomen soft, non-tender, nondistended. Hepatic and splenic margins not palpable. MUSCULOSKELETAL: Extremities without clubbing, cyanosis, or edema. No obvious deformities. Full range of motion of the upper and lower extremities bilaterally. 2+ pulses bilaterally. NEUROLOGICAL: Awake and alert. No obvious cranial nerve deficits. Motor grossly within normal limits. Five out of 5 muscle strength in the arms and legs. Normal speech. PSYCHIATRIC: Appropriate mood and affect; insight and judgment normal. Data Data Last Documented VS Vital Signs Date Time Temp Pulse Resp B/P (MAP) Pulse Ox O2 Delivery O2 Flow Rate FiO2 04/07/18 18:00 67 16 114/72 (86) 96 Room Air 04/07/18 16:01 97.9 Orders Orders Electrocardiogram (04/07/18 16:12) Complete Blood Count With Diff (04/07/18 16:12) Comprehensive Metabolic Panel (04/07/18 16:12) Ckmb (Isoenzyme) Profile (04/07/18 16:12) Troponin I (04/07/18 16:12) Prothrombin Time / Inr (Pt) (04/07/18 16:12) Act Partial Throm Time (Ptt) (04/07/18 16:12) Magnesium (Mg) (04/07/18 16:12) Thyroid Stimulating Hormone (04/07/18 16:12) Chest, Single Ap (04/07/18 16:12) Ct Brain W/O Iv Contrast(Rout) (04/07/18 16:12) Iv Access Insert/Monitor (04/07/18 16:12) Ecg Monitoring (04/07/18 16:12) Oximetry (04/07/18 16:12) Orthostatic Vital Signs (04/07/18 16:12) Ct Cerv Spine W/O Contrast (04/07/18 ) Sodium Chlor 0.9% 1000 Ml Inj (Ns 1000 M (04/07/18 16:15) Metoclopramide Inj (Reglan Inj) (04/07/18 16:15) Tetanus/Diphtheria Tox Adult (Tetanus/Di (04/07/18 16:15) Wound Care (04/07/18 16:27) Lidocaine Pf 1% Inj (Xylocaine-Mpf 1% In (04/07/18 18:00) Place In Observation (04/07/18 ) Vital Signs (Adult) Q4H (04/07/18 18:45) Varnisher / Telemetry .CONTINUOUS (04/07/18 18:45) Sodium Chloride 0.9% Flush (Ns Flush) (04/07/18 18:45) Sodium Chloride 0.9% Flush (Ns Flush) (04/07/18 21:00) Naloxone Inj (Narcan Inj) (04/07/18 18:45) Echo 2d Comp With Doppler (04/07/18 ) Vital Signs (Adult) Q4H (04/07/18 19:02) Activity Oob With Assistance (04/07/18 19:02) Varnisher / Telemetry .CONTINUOUS (04/07/18 19:02) Intake + Output ANJELICA.QSHIFT (04/07/18 19:02) Diet Heart Healthy (04/08/18 Breakfast) Sodium Chlor 0.9% 1000 Ml Inj (Ns 1000 M (04/07/18 19:02) Sodium Chloride 0.9% Flush (Ns Flush) (04/07/18 19:15) Sodium Chloride 0.9% Flush (Ns Flush) (04/07/18 21:00) Comprehensive Metabolic Panel (04/08/18 06:00) Complete Blood Count With Diff (04/08/18 06:00) Troponin I (04/08/18 00:00) Troponin I (04/08/18 06:00) Prothrombin Time / Inr (Pt) (04/08/18 06:00) Scd Bilateral/Knee High ANJELICA.BID (04/07/18 19:02) Tee Bilateral/Knee High ANJELICA.QSHIFT (04/07/18 19:03) Acetaminophen (Tylenol) (04/07/18 19:15) Oxycodone (Roxicodone) (04/07/18 19:15) Oxycodone (Roxicodone) (04/07/18 19:15) Docusate Sodium-Senna (Erum-Colace) (04/07/18 21:00) Magnesium Hydroxide Liq (Milk Of Magnesi (04/07/18 19:15) Sennosides (Senokot) (04/07/18 19:15) Bisacodyl Supp (Dulcolax Supp) (04/07/18 19:15) Lactulose Liq (Lactulose Liq) (04/07/18 19:15) Physician Name Changes (04/07/18 ) Sodium Chlor 0.9% 1000 Ml Inj (Ns 1000 M (04/07/18 19:15) Admit Order (Ed Use Only) (04/07/18 19:16) Labs Laboratory Tests Test 04/07/18 16:15 04/07/18 17:05 White Blood Count 4.0 TH/MM3 Red Blood Count 4.68 MIL/MM3 Hemoglobin 16.4 GM/DL Hematocrit 47.1 % Mean Corpuscular Volume 100.5 FL Mean Corpuscular Hemoglobin 35.1 PG Mean Corpuscular Hemoglobin Concent 34.9 % Red Cell Distribution Width 14.3 % Platelet Count 133 TH/MM3 Mean Platelet Volume 10.4 FL Neutrophils (%) (Auto) 72.3 % Lymphocytes (%) (Auto) 14.3 % Monocytes (%) (Auto) 9.4 % Eosinophils (%) (Auto) 3.2 % Basophils (%) (Auto) 0.8 % Neutrophils # (Auto) 2.9 TH/MM3 Lymphocytes # (Auto) 0.6 TH/MM3 Monocytes # (Auto) 0.4 TH/MM3 Eosinophils # (Auto) 0.1 TH/MM3 Basophils # (Auto) 0.0 TH/MM3 CBC Comment DIFF FINAL Differential Comment Prothrombin Time 13.0 SEC Prothromb Time International Ratio 1.3 RATIO Activated Partial Thromboplast Time 27.6 SEC Blood Urea Nitrogen 14 MG/DL Creatinine 0.94 MG/DL Random Glucose 110 MG/DL Total Protein 7.8 GM/DL Albumin 3.6 GM/DL Calcium Level 9.0 MG/DL Magnesium Level 2.0 MG/DL Alkaline Phosphatase 167 U/L Aspartate Amino Transf (AST/SGOT) 45 U/L Alanine Aminotransferase (ALT/SGPT) 32 U/L Total Bilirubin 1.4 MG/DL Sodium Level 137 MEQ/L Potassium Level 3.7 MEQ/L Chloride Level 98 MEQ/L Carbon Dioxide Level 27.2 MEQ/L Anion Gap 12 MEQ/L Estimat Glomerular Filtration Rate 60 ML/MIN Total Creatine Kinase 95 U/L Troponin I 0.02 NG/ML Thyroid Stimulating Hormone 3rd Gen 83.800 uIU/ML MDM Medical Decision Making Medical Screen Exam Complete: Yes Emergency Medical Condition: Yes Medical Record Reviewed: Yes Interpretation(s) CBC & BMP Diagram 04/07/18 16:15 04/07/18 17:05 Total Protein 7.8, Albumin 3.6, Calcium Level 9.0, Magnesium Level 2.0, Alkaline Phosphatase 167 H, Aspartate Amino Transf (AST/SGOT) 45 H, Alanine Aminotransferase (ALT/SGPT) 32, Total Bilirubin 1.[address] H Last Impressions Head CT 04/07/18 1612 Signed Impressions: CONCLUSION: 1. No acute intracranial abnormality. 2. Left parietal scalp hematoma. Chest X-Ray 04/07/18 1612 Signed Impressions: CONCLUSION: 1. Minimal bibasilar atelectasis and/or scarring. 2. No acute focal infiltrate or pulmonary vascular congestion. 3. Mild degenerative changes and scoliosis of the thoracic spine. Cervical Spine CT 04/07/18 0000 Signed Impressions: CONCLUSION: 1. No acute fracture or prevertebral soft tissue swelling. 2. Mild spinal stenosis and moderate bilateral foraminal narrowing at C5-6. 3. Moderate bilateral foraminal narrowing at C4-5 and C6-7 without spinal sten osis. 4. Straightening of normal cervical lordosis. 5. Scoliosis of the cervical spine. 6. Cervical spondylosis at C4-5, C5-6 and C6-7. troponin and CKMB negative EKG shows sinus rhythm with no sign of acute ischemia or arrhythmia read by me and attending. Differential Diagnosis Syncope versus head injury versus fall versus laceration versus head bleed Narrative Course 67-year-old female that presents to the ED for evaluation of syncope and head injury. Patient was properly examined and was found to have signs and symptoms concerning for significant syncope. Labs and imaging order. Labs and imaging were essentially unremarkable other than for hematoma. After explained procedure to the patient and she agreed to it laceration was repaired stating procedure note. I am concerned about the patient's syncope. She initially did not want to stay. Her my attending Dr. Hook evaluate her who had a long discussion with the patient and she agreed to stay. Patient was admitted to Dr. Rivera who agrees to admission for further evaluation of syncope. Diagnosis Primary Impression: Syncope Qualified Codes: R55 - Syncope and collapse Additional Impressions: Head injury, acute Qualified Codes: S09.90XA - Unspecified injury of head, initial encounter Hypothyroidism Qualified Codes: E03.9 - Hypothyroidism, unspecified Laceration Admitting Information Admitting Physician Requests: Observation Andrey Jerome Apr 07, 2018 19:30
[2018-04-07] MEDS ORDERED: MECLIZINE HCL 25 MG TAB PO PRN (20:15)
[2018-04-07 20:30] VITALS: BP 94/60; PULSE 69; RESP 17; TEMP 98.2; O2SAT 98
[2018-04-07 20:32] VITALS: BP 96/56
[2018-04-07] MEDS: SODIUM CHLORIDE 0.9% FLUSH 10 ML FLUSH IV FLUSH SCH (21:00)
[2018-04-07] MEDS ORDERED: SODIUM CHLORIDE 0.9% FLUSH 10 ML FLUSH IV FLUSH SCH (21:00)
[2018-04-07] MEDS: DOCUSATE SODIUM 50 MG/SENNA 8.6 MG TAB PO SCH (21:00)
[2018-04-08] VITALS (7 sets, daily range): BP systolic 78–87; BP diastolic 45–62; PULSE 60–67; RESP 15–20; TEMP 98.1–98.4; O2SAT 94–98
[2018-04-08] MEDS: SODIUM CHLOR 0.9% 1000 ML INJ 1,000 ML IV SCH ×3 (00:40→15:02)
[2018-04-08] MEDS ORDERED: SODIUM CHLORID 0.9% 500 ML INJ 500 ML IV ONE (04:30)
[2018-04-08 04:38] LABS: AUTOMATED NEUTROPHIL # 2.6 TH/MM3 (1.8-7.7); BASOPHIL % 0.4 % (0.0-2.0); EOSINOPHIL # 0.1 TH/MM3 (0-0.4); EOSINOPHIL % 2.9 % (0.0-4.0); HEMATOCRIT 37.3 % (35.0-46.0); HEMOGLOBIN 12.9 GM/DL (11.6-15.3); LYMPH % 9.8 % (9.0-44.0); LYMPHOCYTE # 0.3 TH/MM3 (1.0-4.8); MEAN CELL VOLUME 100.3 FL (80.0-100.0); MEAN CORPUSCULAR HEMOGLOBIN 34.8 PG (27.0-34.0); MEAN CORPUSCULAR HGB CONC 34.7 % (32.0-36.0); MEAN PLATELET VOLUME 9.9 FL (7.0-11.0); MONO % 12.8 % (0.0-8.0); MONOCYTE # 0.4 TH/MM3 (0-0.9); NEUT % 74.1 % (16.0-70.0); PLATELET COUNT 96 TH/MM3 (150-450); RED BLOOD COUNT 3.72 MIL/MM3 (4.00-5.30); RED CELL DISTRIBUTION WIDTH 13.8 % (11.6-17.2); WHITE BLOOD COUNT 3.4 TH/MM3 (4.0-11.0)
[2018-04-08 04:46] LABS: INTERNATIONAL NORMALIZED RATIO 1.3 RATIO; PROTHROMBIN TIME - PATIENT 13.5 SEC (9.8-11.6)
[2018-04-08] MEDS: LEVOTHYROXINE SODIUM 75 MCG TAB PO SCH (04:59)
[2018-04-08] MEDS: ACETAMINOPHEN 325 MG TAB PO PRN (04:59)
[2018-04-08 05:21] LABS: ALBUMIN 2.4 GM/DL (3.4-5.0); ALKALINE PHOSPHATASE 100 U/L (45-117); ALT (GPT) 24 U/L (10-53); AST (GOT) 33 U/L (15-37); BICARBONATE 21.8 MEQ/L (21.0-32.0); BLOOD UREA NITROGEN 13 MG/DL (7-18); CALCIUM 7.6 MG/DL (8.5-10.1); CHLORIDE 107 MEQ/L (98-107); CREATININE 0.68 MG/DL (0.50-1.00); FREE T3 1.22 PG/ML (2.18-3.98); FREE T4 0.81 NG/DL (0.76-1.46); GLOMERULAR FILTRATION RATE 87 ML/MIN (>89); GLUCOSE,RANDOM 72 MG/DL (74-106); SODIUM (NA) 141 MEQ/L (136-145); TOTAL BILIRUBIN ADULT 1.4 MG/DL (0.2-1.0); TOTAL PROTEIN 5.6 GM/DL (6.4-8.2); TROPONIN I 0.03 NG/ML (0.02-0.05)
[2018-04-08] MEDS: DOCUSATE SODIUM 50 MG/SENNA 8.6 MG TAB PO SCH ×2 (09:00→20:39)
[2018-04-08] MEDS: SODIUM CHLORIDE 0.9% FLUSH 10 ML FLUSH IV FLUSH SCH ×2 (09:00→20:39)
--- NOTE | 2018-04-08 14:00 | HHI.PR ---
Subjective Remarks Follow up syncope. BP has been low. Patient still reporting dizziness when sitting or standing. No nausea/vomiting. No chest pain or dyspnea. No vision changes. She has a frontal headache. Objective Vitals Vital Signs Date Time Temp Pulse Resp B/P (MAP) Pulse Ox O2 Delivery O2 Flow Rate FiO2 04/08/18 12:00 98.1 65 17 78/51 (60) 94 04/08/18 08:29 98.2 64 18 80/53 (62) 97 04/08/18 03:56 98.2 67 17 83/47 (59) 97 04/08/18 01:11 87/54 (65) 04/08/18 00:04 98.3 65 18 87/52 (64) 97 04/07/18 20:32 67 16 96/56 (69) 97 04/07/18 20:30 98.2 69 17 94/60 (71) 98 04/07/18 18:00 67 16 114/72 (86) 96 Room Air 04/07/18 16:01 97.9 70 18 118/68 (85) 96 I/O 04/07/18 04/07/18 04/07/18 04/08/18 04/08/18 04/08/18 07:00 15:00 23:00 07:00 15:00 23:00 Intake Total 2200 ml Balance 2200 ml Intake IV Total 2200 ml # Voids 2 Result Diagram: 04/08/18 0424 04/08/18 0424 Imaging Last Impressions Head CT 04/07/18 1612 Signed Impressions: CONCLUSION: 1. No acute intracranial abnormality. 2. Left parietal scalp hematoma. Chest X-Ray 04/07/18 1612 Signed Impressions: CONCLUSION: 1. Minimal bibasilar atelectasis and/or scarring. 2. No acute focal infiltrate or pulmonary vascular congestion. 3. Mild degenerative changes and scoliosis of the thoracic spine. Cervical Spine CT 04/07/18 0000 Signed Impressions: CONCLUSION: 1. No acute fracture or prevertebral soft tissue swelling. 2. Mild spinal stenosis and moderate bilateral foraminal narrowing at C5-6. 3. Moderate bilateral foraminal narrowing at C4-5 and C6-7 without spinal sten osis. 4. Straightening of normal cervical lordosis. 5. Scoliosis of the cervical spine. 6. Cervical spondylosis at C4-5, C5-6 and C6-7. Objective Remarks General: No acute distress. HEENT: Scalp laceration sutured. Heart: Regular rate and rhythm. 2/6 murmur. Lungs: Clear to auscultation bilaterally. No wheezes, rales, or rhonchi. Breathing is nonlabored. Abdomen: Soft, nontender, nondistended. Extremities: No lower extremity edema. Psych: Alert and oriented. Neuro: Normal speech. No focal deficits noted. Procedures none Urinary Catheter: No Vascular Central Line Catheter: No A/P Problem List: (1) Syncope ICD Code: R55 - Syncope and collapse Status: Acute (2) Head injury, acute ICD Code: S09.90XA - Unspecified injury of head, initial encounter Status: Acute (3) Coagulopathy ICD Code: D68.9 - Coagulation defect, unspecified (4) Hepatitis C ICD Code: B19.20 - Unspecified viral hepatitis C without hepatic coma (5) Hypothyroidism ICD Code: E03.9 - Hypothyroidism, unspecified Assessment and Plan 1. Syncope: Patient developed acute dizziness followed by a syncopal episode. She fell and hit her head. This may have been precipitated by dehydration from high-dose diuretic therapy. Monitor intake/output. Patient remains hypotensive. Serial cardiac enzymes are negative. Echocardiogram ordered, but not done yet. Consult cardiology. Continue IV fluids. 2. Hypotension: Uncertain etiology. Diuretics are on hold. Continue IV fluids. Monitor blood pressure. 3. Head injury: Scalp laceration sutured. CT of the head is negative. CT of the cervical spine shows no acute fracture. 4. Coagulopathy: Monitor INR. Not on anticoagulation. 5. History of hepatitis C: Status post interferon treatment. Diuretics on hold secondary to syncope, dehydration. 6. Hypothyroidism: TSH significantly elevated. Synthroid dose increased. Follow-up with PCP and recheck TSH in 4-6 weeks. 7. DVT prophylaxis: SCDs, YUSRA abraham. Avoid chemical prophylaxis secondary to coagulopathy. Discharge Planning Pending further workup, clearance by cardiology. Problem Qualifiers (1) Syncope: Qualified Codes: R55 - Syncope and collapse (2) Head injury, acute: Qualified Codes: S09.90XA - Unspecified injury of head, initial encounter Ger Marks MD Apr 08, 2018 14:00
--- NOTE | 2018-04-08 17:32 | EKG ---
Date Performed: 04/07/2018 Time Performed: 16:09:33 PTAGE: 67 years EKG: Sinus rhythm POSSIBLE LEFT ATRIAL ENLARGEMENT RIGHT BUNDLE BRANCH BLOCK Compared to previous tracing, the Right b undle branch block and atrial abnormality is new. ABNORMAL ECG PREVIOUS TRACING : 09/18/2014 10.24 DOCTOR: Reece Harris Interpretating Date/Time 04/08/2018 17:32:02
[2018-04-09 00:50] VITALS: BP 80/55; PULSE 66; RESP 16; TEMP 98.5; O2SAT 95
[2018-04-09] MEDS: SODIUM CHLOR 0.9% 1000 ML INJ 1,000 ML IV SCH ×2 (01:02→11:02)
[2018-04-09 05:13] VITALS: BP 82/51; PULSE 68; RESP 17; TEMP 98.5; O2SAT 93
[2018-04-09] MEDS: LEVOTHYROXINE SODIUM 75 MCG TAB PO SCH (05:34)
[2018-04-09] MEDS: ACETAMINOPHEN 325 MG TAB PO PRN (05:35)
[2018-04-09 07:40] VITALS: PULSE 62
[2018-04-09 08:17] VITALS: BP 84/50; PULSE 65; RESP 18; TEMP 97.4; O2SAT 95
--- NOTE | 2018-04-09 08:22 | MB ---
cc: Aung Carmona MD DATE: 04/08/2018 REASON FOR CONSULTATION: Evaluation of syncope. HISTORY OF PRESENT ILLNESS: Devi Goldsmith is a 67-year-old female with a history of cirrhosis. She has had varices. She was at work at [employer]. She was at the end of her shift, going to her locker and felt dizziness and ended up on the floor. She is on very high doses of diuretics. She has not been to a doctor in over a year and was switching doctors because she is now [employer]. Her thyroid medicine got reduced to 50 mcg and she had not had it checked in a long time and I see that her TSH is very elevated and her free T3 is low. She is running a low blood pressure. She is on Lasix 80 b.i.d. and Aldactone 50 b.i.d. for her liver disease. There is no history of heart disease that we know of. She does not have angina. She does not have CHF. Chest x-ray, size is normal. She has not had palpitations. She smokes about a pack a week according to her. There is no family history of heart disease except mitral valve prolapse in her mother. PAST MEDICAL HISTORY: Includes cirrhosis of the liver with varices, hypothyroidism. PAST SURGICAL HISTORY: Includes tonsillectomy, breast biopsy. FAMILY HISTORY: Positive for mitral prolapse in the mother. Negative for coronary artery disease. SOCIAL HISTORY: She occasionally has a glass of wine at night. She smokes about a pack a week. REVIEW OF SYSTEMS: Otherwise negative. PHYSICAL EXAMINATION: GENERAL: Talkative, adequately developed white female, appears stated age. VITAL SIGNS: Charted. Her blood pressures are running low, in the 70s and 80s. HEENT: Unremarkable. NECK: Shows no JVD. No bruits. CHEST: Clear to auscultation. CARDIOVASCULAR: Nondisplaced PMI. First and second heart sounds normal. Regular rate and rhythm. There is a 2/6 systolic ejection murmur. ABDOMEN: Very slightly distended, but I do not detect ascites, could not palpate a liver edge. Soft, no masses. EXTREMITIES: Reveal no clubbing, cyanosis or edema. Peripheral pulses intact. ECHOCARDIOGRAM: Shows sinus rhythm with a right bundle branch block. IMAGING: Chest x-ray shows normal heart size, no CHF. Radiologist read minimal bibasilar atelectasis and/or scarring. LABORATORY DATA: Troponins have been negative. Creatinine is normal. Albumin is low. TSH is very high at 83.8. IMPRESSION: Syncope, likely related to thyroid and volume status. I do not see evidence for heart disease. She has A 2D echo that is pending. I will be available, but I will not be following. Please call if there is any questions. MD JANNA Stephens/RADHA , 06:16 PM , 08:43 PM
[2018-04-09] MEDS: SODIUM CHLORIDE 0.9% FLUSH 10 ML FLUSH IV FLUSH SCH (09:31)
--- NOTE | 2018-04-09 09:31 | PD.CARD.PN ---
Subjective Subjective Remarks no complaints Objective Medications Current Medications Medications (Trade) Dose Ordered Sig/Sue Route Start Time Stop Time Status Last Admin (Narcan Inj) 0.4 mg UNSCH PRN IV PUSH 04/07/18 18:45 Sodium Chloride 1,000 ml @ 100 mls/hr Q10H IV 04/07/18 19:02 04/08/18 15:02 (NS Flush) 2 ml UNSCH PRN IV FLUSH 04/07/18 19:15 (NS Flush) 2 ml BID IV FLUSH 04/07/18 21:00 (Tylenol) 650 mg Q6H PRN PO 04/07/18 19:15 04/09/18 05:35 (Roxicodone) 10 mg Q4H PRN PO 04/07/18 19:15 (Roxicodone) 5 mg Q4H PRN PO 04/07/18 19:15 (Erum-Colace) 1 tab BID PO 04/07/18 21:00 (Milk Of Magnesia Liq) 30 ml Q12H PRN PO 04/07/18 19:15 (Senokot) 17.2 mg Q12H PRN PO 04/07/18 19:15 (Dulcolax Supp) 10 mg DAILY PRN RECTAL 04/07/18 19:15 (Lactulose Liq) 30 ml DAILY PRN PO 04/07/18 19:15 (Synthroid) 75 mcg DAILY@0600 PO 04/08/18 06:00 04/09/18 05:34 (Antivert) 25 mg Q8H PRN PO 04/07/18 20:15 Vital Signs / I&O Vital Signs Date Time Temp Pulse Resp B/P (MAP) Pulse Ox O2 Delivery O2 Flow Rate FiO2 04/09/18 08:17 97.4 65 18 84/50 (61) 95 04/09/18 05:13 98.5 68 17 82/51 (61) 93 04/09/18 00:50 98.5 66 16 80/55 (63) 95 04/08/18 20:34 98.4 60 15 86/62 (70) 97 04/08/18 17:20 98.2 20 83/45 (58) 98 04/08/18 12:00 98.1 65 17 78/51 (60) 94 I/O 6/01/2104/08/18 04/08/18 04/09/18 04/09/18 04/09/18 07:00 15:00 23:00 07:00 15:00 23:00 Intake Total 2200 ml Balance 2200 ml Intake IV Total 2200 ml # Voids 2 Aung Carmona MD Apr 09, 2018 09:31
[2018-04-09] MEDS: DOCUSATE SODIUM 50 MG/SENNA 8.6 MG TAB PO SCH (09:32)
[2018-04-09 11:00] LABS: BASOPHIL % 1.1 % (0.0-2.0); EOSINOPHIL # 0.1 TH/MM3 (0-0.4); EOSINOPHIL % 3.3 % (0.0-4.0); HEMATOCRIT 43.6 % (35.0-46.0); HEMOGLOBIN 15.1 GM/DL (11.6-15.3); LYMPH % 9.5 % (9.0-44.0); LYMPHOCYTE # 0.4 TH/MM3 (1.0-4.8); MEAN CELL VOLUME 100.6 FL (80.0-100.0); MEAN CORPUSCULAR HEMOGLOBIN 34.8 PG (27.0-34.0); MEAN CORPUSCULAR HGB CONC 34.5 % (32.0-36.0); MEAN PLATELET VOLUME 10.4 FL (7.0-11.0); MONO % 9.6 % (0.0-8.0); MONOCYTE # 0.4 TH/MM3 (0-0.9); NEUT % 76.5 % (16.0-70.0); PLATELET COUNT 117 TH/MM3 (150-450); RED BLOOD COUNT 4.33 MIL/MM3 (4.00-5.30); RED CELL DISTRIBUTION WIDTH 13.9 % (11.6-17.2)
[2018-04-09 11:12] VITALS: BP 91/51; PULSE 57; RESP 20; TEMP 97; O2SAT 97
[2018-04-09 11:46] LABS: BICARBONATE 18.8 MEQ/L (21.0-32.0); CALCIUM 8.6 MG/DL (8.5-10.1); CREATININE 0.63 MG/DL (0.50-1.00)
--- NOTE | 2018-04-09 12:50 | ECHRPT ---
Indication: CONCLUSIONS Normal left ventricular size and wall thickness. The left ventricular systolic function is normal wi th an estimated ejection fraction in the range of 60-65%. Normal wall motion. Mild mitral valve regurgitation. Moderate calcification of the noncoronary cusp of the aortic valve. There is moderate to severe tricuspid valve regurgitation. The estimated pulmonary arterial pressure is 25 mmHg. BP: / HR: Rhythm: MEASUREMENTS (Male / Female) Normal Values Technical Quality: 2D ECHO LV Diastolic Diameter PLAX 4.3 cm 4.2 - 5.9 / 3.9 - 5.3 cm LV Systolic Diameter PLAX 2.9 cm IVS Diastolic Thickness 0.6 cm 0.6 - 1.0 / 0.6 - 0.9 cm LVPW Diastolic Thickness 0.7 cm 0.6 - 1.0 / 0.6 - 0.9 cm LV Relative Wall Thickness 0.3 RV Internal Dim ED PLAX 2.3 cm DOPPLER MR Peak Velocity 493.0 cm/s MR Peak Gradient 97.2 mmHg TR Peak Velocity 223.0 cm/s TR Peak Gradient 19.9 mmHg Right Atrial Pressure 5.0 mmHg Pulmonary Artery Systolic Pressu 24.9 mmHg Right Ventricular Systolic Press 24.9 mmHg FINDINGS LEFT VENTRICLE Normal left ventricular size and wall thickness. The left ventricular systolic function is normal wi th an estimated ejection fraction in the range of 60-65%. Normal wall motion. RIGHT VENTRICLE Normal right ventricular size and systolic function. LEFT ATRIUM The left atrial size is normal. RIGHT ATRIUM The right atrial size is normal. ATRIAL SEPTUM Normal atrial septal thickness without atrial level shunting by limited color doppler interrogation. AORTA The aortic root and proximal ascending aorta are normal in size on limited imaging. MITRAL VALVE Mild mitral valve regurgitation. AORTIC VALVE Moderate calcification of the noncoronary cusp of the aortic valve. TRICUSPID VALVE There is moderate to severe tricuspid valve regurgitation. The estimated pulmonary arterial pressure is 25 mmHg. PULMONARY VALVE No pulmonary valve regurgitation or stenosis. VESSELS The inferior vena cava is normal in size. PERICARDIUM No pericardial effusion. Veto Prieto MD (Electronically Signed) Final Date:09 April 2018 12:48
[2018-04-09 12:54] VITALS: PULSE 58
[2018-04-09] MEDS ORDERED: LEVO.075 PO (14:06)
--- NOTE | 2018-04-09 14:08 | HHI.DCPOC ---
Discharge Care Plan Diagnosis: (1) Syncope (2) Hypotension (3) Dehydration (4) Hypothyroidism Goals to Promote Your Health * To prevent worsening of your condition and complications * To maintain your health at the optimal level Directions to Meet Your Goals Take your medications as prescribed Follow your dietary instruction Follow activity as directed Keep your appointments as scheduled Take your immunizations and boosters as scheduled If your symptoms worsen call your PCP, if no PCP go to Urgent Care Center or Emergency Room Smoking is Dangerous to Your Health. Avoid second hand smoke Call the 24-hour hour crisis hotline for domestic abuse at Layla Vidal PA-C Apr 09, 2018 2:07 pm
--- NOTE | 2018-04-09 14:48 | HHI.PR ---
Subjective Remarks Follow up syncope, hypotension. The patient has no complaints at this time. Lightheadedness is much better. She has been ambulating in the [place] without difficulty. She wants to go home. She denies chest pain or dyspnea. Objective Vitals Vital Signs Date Time Temp Pulse Resp B/P (MAP) Pulse Ox O2 Delivery O2 Flow Rate FiO2 04/09/18 12:54 58 04/09/18 11:12 97.0 57 20 91/51 (64) 97 04/09/18 08:17 97.4 65 18 84/50 (61) 95 04/09/18 07:40 62 04/09/18 05:13 98.5 68 17 82/51 (61) 93 04/09/18 00:50 98.5 66 16 80/55 (63) 95 04/08/18 20:34 98.4 60 15 86/62 (70) 97 04/08/18 17:20 98.2 20 83/45 (58) 98 I/O 04/08/18 04/08/18 04/08/18 04/09/18 04/09/18 04/09/18 07:00 15:00 23:00 07:00 15:00 23:00 Intake Total 2200 ml 1000 ml Balance 2200 ml 1000 ml Intake IV Total 2200 ml 1000 ml # Voids 2 1 Result Diagram: 04/09/18 1030 04/09/18 1030 Imaging Last Impressions Head CT 04/07/18 1612 Signed Impressions: CONCLUSION: 1. No acute intracranial abnormality. 2. Left parietal scalp hematoma. Chest X-Ray 04/07/18 1612 Signed Impressions: CONCLUSION: 1. Minimal bibasilar atelectasis and/or scarring. 2. No acute focal infiltrate or pulmonary vascular congestion. 3. Mild degenerative changes and scoliosis of the thoracic spine. Cervical Spine CT 04/07/18 0000 Signed Impressions: CONCLUSION: 1. No acute fracture or prevertebral soft tissue swelling. 2. Mild spinal stenosis and moderate bilateral foraminal narrowing at C5-6. 3. Moderate bilateral foraminal narrowing at C4-5 and C6-7 without spinal sten osis. 4. Straightening of normal cervical lordosis. 5. Scoliosis of the cervical spine. 6. Cervical spondylosis at C4-5, C5-6 and C6-7. Objective Remarks General: No acute distress. HEENT: Scalp laceration sutured. Heart: Regular rate and rhythm. 2/6 murmur. Lungs: Clear to auscultation bilaterally. No wheezes, rales, or rhonchi. Breathing is nonlabored. Abdomen: Soft, nontender, nondistended. Extremities: No lower extremity edema. Psych: Alert and oriented. Neuro: Normal speech. No focal deficits noted. Procedures none Urinary Catheter: No Vascular Central Line Catheter: No A/P Problem List: (1) Syncope ICD Code: R55 - Syncope and collapse Status: Acute (2) Head injury, acute ICD Code: S09.90XA - Unspecified injury of head, initial encounter Status: Acute (3) Coagulopathy ICD Code: D68.9 - Coagulation defect, unspecified (4) Hepatitis C ICD Code: B19.20 - Unspecified viral hepatitis C without hepatic coma (5) Hypothyroidism ICD Code: E03.9 - Hypothyroidism, unspecified Assessment and Plan 1. Syncope: Patient developed acute dizziness followed by a syncopal episode. She fell and hit her head. This may have been precipitated by dehydration from high-dose diuretic therapy. Monitor intake/output. Patient remains hypotensive. Serial cardiac enzymes are negative. Echocardiogram shows tricuspid regurgitation. Ejection fraction 60-65%. Discussed with Dr. Carmona. No further cardiac workup necessary at this time. 2. Hypotension: Uncertain etiology. Diuretics are on hold. Monitor blood pressure. The patient's blood pressure actually improved upon standing with physical therapy. 3. Head injury: Scalp laceration sutured. CT of the head is negative. CT of the cervical spine shows no acute fracture. 4. Coagulopathy: Monitor INR. Not on anticoagulation. 5. History of hepatitis C: Status post interferon treatment. Diuretics on hold secondary to syncope, dehydration. 6. Hypothyroidism: TSH significantly elevated. Synthroid dose increased. Follow-up with PCP and recheck TSH in 4-6 weeks. 7. DVT prophylaxis: SCDs, YUSRA abraham. Avoid chemical prophylaxis secondary to coagulopathy. Discharge Planning Discharge home in stable condition. Follow-up with PCP. Heart healthy diet. Activity as tolerated. Problem Qualifiers (1) Syncope: Qualified Codes: R55 - Syncope and collapse (2) Head injury, acute: Qualified Codes: S09.90XA - Unspecified injury of head, initial encounter Ger Marks MD Apr 09, 2018 14:48
== END 2018-04-09 16:09 | disposition home or self-care (01) ==
LOC: NEPE 15:54 → NEDA 19:18 → NEPGCP 20:19
PROVIDERS: ADMIT Family Medicine; ATTEND Family Medicine
DX: R55 Syncope and collapse (principal); E86.0 Dehydration; I95.9 Hypotension, unspecified; E03.9 Hypothyroidism, unspecified; S01.01XA Laceration without foreign body of scalp, initial encounter; I34.1 Nonrheumatic mitral (valve) prolapse; W19.XXXA Unspecified fall, initial encounter; D68.9 Coagulation defect, unspecified; B19.20 Unspecified viral hepatitis C without hepatic coma; I85.00 Esophageal varices without bleeding; F17.200 Nicotine dependence, unspecified, uncomplicated; Z23 Encounter for immunization
CPT/HCPCS: 12002; 70450; 71045; 72125; 80048; 80053; 82550; 83735; 84439; 84443; 84481; 84484; 85025; 85610; 85730; 90471; 90714; 93005; 93306; 96361; 96374; 97163; 97530; 99285; G0378; G8987; G8988; J2765; J7030; J7040